=== PATIENT | male | born 1965 | race Hispanic/Latino ===

== ENCOUNTER 2020-06-26 06:43 | Day surgery (SDC) | payer BC ==
[~2020-06-26] VITALS: Ht 172.7 cm; Wt 131.5 kg
[~2020-06-26 06:43] MED LIST: AEC81 PO; ERTU1TAB11 PO; HYDR12.54 PO; LEVO88CA4 PO; LOVA40TA2 PO; MV-M1TAB20 PO; OLME40TA18 PO; SODIUM CHLORIDE 0.9% 1000ML 1,000 ML IV ONE; VESCEPA PO
[2020-06-26 08:00] VITALS: BP 100/54
[2020-06-26] MEDS ORDERED: [UNRECOGNIZED DRUG - OTHER] PO (08:20)
[2020-06-26] MEDS ORDERED: [UNRECOGNIZED DRUG - OTHER] PO (08:20)
[2020-06-26] MEDS ORDERED: [UNRECOGNIZED DRUG - OTHER] PO (08:20)
[2020-06-26] MEDS ORDERED: PROPOFOL 10 MG/ML 20ML VIAL IV ONE ×2 (08:56)
[2020-06-26 09:20] VITALS: BP 92/43
[2020-06-26 09:25] VITALS: BP 93/53
[2020-06-26 09:35] VITALS: BP 102/47
[2020-06-26 09:45] VITALS: BP 107/56
== END 2020-06-26 09:45 | disposition home or self-care (01) ==
LOC: DAH 06:43 → ENDO 06:43
PROVIDERS: ATTEND Internal Medicine Gastroenterology
DX: R93.3 Abnormal findings on diagnostic imaging of other parts of digestive tract (principal); K31.89 Other diseases of stomach and duodenum; G47.30 Sleep apnea, unspecified; E78.5 Hyperlipidemia, unspecified; F41.9 Anxiety disorder, unspecified; E11.9 Type 2 diabetes mellitus without complications; E03.9 Hypothyroidism, unspecified; F32.9 Major depressive disorder, single episode, unspecified; M19.90 Unspecified osteoarthritis, unspecified site; I10 Essential (primary) hypertension; Z79.82 Long term (current) use of aspirin; Z79.899 Other long term (current) drug therapy; Z20.828 Contact with and (suspected) exposure to other viral communicable diseases
CPT/HCPCS: 43237; 82948; A4215; A4221; A4222; A4223; A4606; A4620; A4663; C9803; J2704 ×2; J7030; U0003